=== PATIENT | male | born 1980 | race Caucasian/White ===

== ENCOUNTER 2017-08-05 14:02 | Emergency (ER) | payer OTHER ==
[~2017-08-05] VITALS: Ht 188 cm; Wt 100.0 kg
[2017-08-05 14:04] VITALS: BP 144/91; PULSE 86; RESP 12; TEMP 98.3; O2SAT 100
[2017-08-05] MEDS ORDERED: AMIODARONE HCL 150 MG/3 ML VIAL ONE (15:09)
--- NOTE | 2017-08-05 15:36 | PD ---
HPI Chief Complaint: Oral / Dental Pain or Problem Time Seen by Provider: 15:36 Travel History International Travel<30 days: No Contact w/Intl Traveler<30days: No Traveled to known affect area: No History of Present Illness HPI PATIENT SAW A DENTIST AND HAS F/U APPOINTMENT WITH THEM, WAS PRESCRIBED amoxil AND MOTRIN, AND ESSENTIALLY IS HERE IN DEPARTMENT BECAUSE PAIN MEDICATION IS NOT HELPFUL ENOUGH. PFSH Social History Tobacco Use: Yes Allergies-Medications (Allergen,Severity, Reaction): Coded Allergies: Sulfa (Sulfonamide Antibiotics) (Verified Allergy, Severe, Hives, 08/05/17) Reported Meds & Prescriptions Reported Meds & Active Scripts Active Ultram (Tramadol HCl) 50 Mg Tab 50 Mg PO Q4H PRN Review of Systems Except as stated in HPI: all other systems reviewed are Neg HENT: Positive: Dental Difficulties Physical Exam Narrative GENERAL: SKIN: Warm and dry. HEAD: Atraumatic. Normocephalic. EYES: Pupils equal and round. No scleral icterus. No injection or drainage. ENT: No nasal bleeding or discharge. Mucous membranes pink and moist. HAS MULTIPLE CARIES AND GINGIVITIS NECK: Trachea midline. No JVD. CARDIOVASCULAR: Regular rate and rhythm. RESPIRATORY: No accessory muscle use. Clear to auscultation. Breath sounds equal bilaterally. GASTROINTESTINAL: Abdomen soft, non-tender, nondistended. MUSCULOSKELETAL: Extremities without clubbing, cyanosis, or edema. No obvious deformities. NEUROLOGICAL: Awake and alert. No obvious cranial nerve deficits. Motor grossly within normal limits. Five out of 5 muscle strength in the arms and legs. Normal speech. PSYCHIATRIC: Appropriate mood and affect; insight and judgment normal. Data Data Last Documented VS Vital Signs Date Time Temp Pulse Resp B/P (MAP) Pulse Ox O2 Delivery O2 Flow Rate FiO2 08/05/17 16:24 08/05/17 14:04 98.3 86 12 100 Orders Orders Amiodarone Inj (Cordarone Inj) (08/05/17 15:09) [facility] Medical Decision Making Medical Screen Exam Complete: Yes Emergency Medical Condition: Yes Medical Record Reviewed: Yes Differential Diagnosis N/A Narrative Course C/O PAIN, THAT IS NOT HELPING FROM MOTRIN RX FROM DENTIST....I ADVISED PATIENT THAT I WILL ONLY SUPPLY A FEW PAIN MEDICATIONS AND FURTHER DENTAL PAIN MANAGEMENT IS TO BE DONE BY DENTIS Diagnosis Primary Impression: DENTAL PAIN Patient Instructions: General Instructions, Toothache (ED) Scripts Tramadol (Ultram) 50 Mg Tab 50 MG PO Q4H Y for PAIN, #28 TAB 0 Refills Prov: Seth Schilling MD 08/05/17 Disposition: 01 DISCHARGE HOME Condition: Stable Seth Schilling MD Aug 05, 2017 15:36
[2017-08-05] MEDS ORDERED: ULTR50TA5 PO (15:40)
== END 2017-08-05 16:24 | disposition home or self-care (01) ==
LOC: NEPE 14:02
DX: K08.89 Other specified disorders of teeth and supporting structures (principal); Z72.0 Tobacco use
CPT/HCPCS: 99283; J0282